=== PATIENT | female | born 1990 | race African-American/Black ===

== ENCOUNTER 2023-06-15 19:41 | Emergency (ER) | payer BC, SELFPAY ==
[2023-06-15 19:44] VITALS: BP 166/91; BMI 48.8
--- NOTE | 2023-06-15 20:54 | ED.GENMED ---
History of Present Illness
General
Chief Complaint: Extremity Pain (non-traumatic)
Source: patient
Time Seen by Provider: 06/15/23 20:28
Travel History
Have you had any contact with someone who has COVID-19?: No
Do you have any symptoms of coronavirus? Fever > 100 degrees, chills, cough, shortness of breath, sore throat, loss of taste or smell, muscle aches, or headache?: No
History of Present Illness
History of Present Illness:
33-year-old female presenting to the emergency department for evaluation of atraumatic right knee pain that has been ongoing since yesterday stating that her foot started to turn outwards but her knee stayed inwards and she has had pain along the
lateral aspect of her knee since. Patient did not take anything for pain prior to arrival but states that she has had a continuous clicking sensation while attempting to ambulate. No other concerns or injuries noted.
Past History
Past History
ED Past Medical History: Arrthythmia (Tachycardia)
ED Past Surgical History: None
Social History
Tobacco: Non-smoker
Alcohol: Occasional
Drug: None
Personal: Single
Living: with family
Employment: Employed
Family History
Family History: Other
Review of Systems
Review of Systems
All Other Systems: ROS reviewed and negative except as documented in HPI and ROS
Phy Exam
Physical Exam
Physical Exam:
GENERAL: Alert , in no apparent distress
EYE: conjunctiva clear
Head: Normocephalic atraumatic
NECK: Supple,
ENT: mmm.
LUNGS: no acute respiratory distress
NEUROLOGICAL: Alert and oriented
SKIN: Warm and dry, skin intact.
MUSCULOSKELETAL: Right knee: No obvious deformity, erythema, edema, ecchymosis, abrasions or lacerations. Patient does have tenderness medially but no obvious joint effusion. She does allow for active and passive range of motion with minimal.
Remainder of extremity is within normal limits and neurovascularly intact
PSYCH: Normal and appropriate interaction.
Scores
Heart Failure Risk
Heart Failure Risk Score: Not Applicable
Heart Score for Chest Pain Patients
STEMI patient?: Not applicable
Withdrawal Assessment of Alcohol
Withdrawal Assessment Completed?: Not applicable
Course
Orders/Labs/Results
Orders:
Orders
06/15/23 19:47
Knee, Right 4 or More Views [CR Knee- Right 4 Or More View*] Urgent
Comment:
Reason For Exam: pain
06/15/23 20:55
Adan Wrap Right-Treatment ONCE
Vital Signs
Initial and Last Documented VS:
Initial Vital Signs
Temp Pulse Resp BP Pulse Ox
98 F 83 16 166/91 100
06/15/23 19:44 06/15/23 19:44 06/15/23 19:44 06/15/23 19:44 06/15/23 19:44
Last Documented Vital Signs
Temp Pulse Resp BP Pulse Ox
98 F 83 16 166/91 100
06/15/23 19:44 06/15/23 19:44 06/15/23 19:44 06/15/23 19:44 06/15/23 19:44
MDM/Problems Addressed
Differential Diagnosis Includes:
Sprain, meniscal injury, ligamentous injury, I do not have concern for fracture or dislocation
MDM/Problems Addressed:
33-year-old female presenting to the emergency department for evaluation of atraumatic right pain. She has not attempted anything from a pain relief standpoint other than icing and elevating. X-ray was ordered from triage which shows
tricompartmental spurring. Encouraged close outpatient follow-up with orthopedics and will provide with information for this. Advised NSAIDs/Tylenol as needed for pain. Adan wrap was provided. Stable for discharge home.
*Radiology
Radiology exam reviewed: preliminary read by ED provider (No acute fracture) and radiology read reviewed
*Pulse Oximetry
Patient hypoxic: no
*Critical Care Note
Total Time (30-74mins, 75-104mins- exclusive of procedures): Not Applicable
ED Attending Note
-
Portions of this chart may have been created with voice recognition software.� Occasional wrong word or��sound alike� substitutions may have occurred due to the inherent limitations of voice recognition software.
Discharge Plan
Departure
Patient Disposition: Home (Routine Discharge)
Date of Disposition: 06/15/23
Time of Disposition: 20:54
Patient with high blood pressure during this ER visit?: Yes
Discharge Problem:
Knee pain, right
Instructions: Knee pain
Prescriptions:
No Action
ondansetron 4 MG tablet,disintegrating
4 mg PO TIDPRN PRN (Reason: nausea/vomiting) Qty: 6 0RF
epinephrine [EpiPen 2-Zeus] 0.3 mg/0.3 mL auto-injector
0.3 mg IM ONCE PRN (Reason: anaphylaxis) Qty: 2 0RF
prednisone 20 mg tablet
20 mg PO DAILY 4 Days Qty: 4 0RF
Referrals:
Cecil Rose MD [Active] - (Ortho)
Interventions
Interventions:
*Risk Screen - Suicide Last Done: 06/15/23 19:44
*General Assessment Last Done: 06/15/23 20:42
*Neglect/Abuse Screening Last Done: 06/15/23 19:44
ED- Fall Risk Assessment Last Done: 06/15/23 20:42
*ED COVID-19 Vaccine History Last Done: 06/15/23 20:42
*Nursing Disposition Last Done: 06/15/23 21:11
ED-Skin Assessment Last Done: 06/15/23 20:40
ED-Peripheral Vascular Assessment Last Done: 06/15/23 20:40
ED-Musculoskeletal Assessment Last Done: 06/15/23 20:40
Discharge Date and Time
Discharge Date/Time: 06/15/23 21:12
Print Language: HONDURAN
== END 2023-06-15 21:12 | disposition home or self-care (01) ==
LOC: EMR 19:41
PROVIDERS: EMERGENCY PHYSICIAN Emergency Medicine; FAMILY PHYSICIAN Family Medicine
DX: M25.561 Pain in right knee (principal); R03.0 Elevated blood-pressure reading, without diagnosis of hypertension
CPT/HCPCS: 99283; 73564

== ENCOUNTER → 2023-08-05 07:46 | Outpatient (REF) | payer OTHER, SELFPAY ==
[2023-08-05 09:18] LABS: Rubella Positive
[2023-08-05 10:22] LABS: Hepatitis B Surface Antibody Negative
[2023-08-08 07:04] LABS: Quantiferon NIL 0.03 IU/mL; Quantiferon TB Gold Plus Negative (Negative)
== END ==
LOC: REG 07:46
PROVIDERS: ATTENDING PHYSICIAN Nurse Practitioner
DX: Z23 Encounter for immunization (principal)
CPT/HCPCS: 86480; 86706; 86735; 86762; 86765; 86787